=== PATIENT | female | born 1950 ===

== ENCOUNTER 2016-11-26 20:17 | Inpatient (IN) | payer MEDICARE ==
[~2016-11-26] VITALS: Ht 154.9 cm; Wt 106.0 kg
--- NOTE | ~2016-11-26 | HP ---
PATIENT'S NAME: SYLVIA ARCHIBALD [facility] AGE: 65 Y [address] ROOM: [place] [address] LOCATION: G3N ADMIT DATE: 11/26/2016 History & Physical DISCHARGE DATE: FAMILY PHYSICIAN: PHYSICIAN, UNKNOWN ATTENDING PHYSICIAN: CONY BECKWITH DATE OF SERVICE: 11/26/2016 CHIEF COMPLAINT: Medical management in the setting of right tib-fib fracture, status post ground-level fall. HISTORY OF PRESENTING ILLNESS: This 65-year-old female with previous history of chronic gait instability and diabetes mellitus type 2 was brought to [facility] after a fall which occurred earlier this evening in [place]. She states she was ambulating up a ramp into a gas station when she decided to turn around. She lost her balance and fell awkwardly. It sounds as though that her leg and cane became entangled in some railing. She experienced pain and deformity and was transferred to [place] for orthopedic evaluation. She was seen and evaluated in the emergency room by Dr. Beckwith. She underwent closed reduction and was placed into a big bulky dressing. He recommended for non- operative management. I was requested to assist in medical management and pain control. She does complain of some pain over the right chest with deep breathing. She denies any significant shortness of breath, however. She denies headaches, dizziness, and lightheadedness. She has fallen on several other occasions which she blames on her chronic gait instability. She denies any other injuries associated with the falls, however. She denies felicitas chest pain. No abdominal pain. Appetite has been good. She has been stooling and voiding normally. Denies tingling or weakness in her extremities. ALLERGIES: NO KNOWN DRUG ALLERGIES. PAST MEDICAL HISTORY: Illnesses: 1. Diabetes mellitus type 2. 2. Morbid obesity. 3. Diabetic peripheral neuropathy. 4. Diabetic foot ulcers, status post left 5th toe amputation. 5. Gait instability, chronic. CURRENT MEDICATIONS: PATIENT'S NAME: SYLVIA ARCHIBALD [facility] AGE: 65 Y [address] ROOM: [place] [address] LOCATION: G3N ADMIT DATE: 11/26/2016 History & Physical DISCHARGE DATE: FAMILY PHYSICIAN: PHYSICIAN, UNKNOWN ATTENDING PHYSICIAN: CONY BECKWITH Currently unavailable, the list is being compiled. FAMILY HISTORY: Negative for heart attack or stroke. SOCIAL HISTORY: She is and lives in a duplex in [place]. Her sister lives nearby and provides social assistance. She is a nonsmoker. There is no significant history of alcohol use. REVIEW OF SYSTEMS: As per HPI. All other organ systems are reviewed and are negative. OBJECTIVE: VITAL SIGNS: Temperature 97.1, pulse 84, respirations 18, blood pressure 119/76, O2 saturation 94% on room air. GENERAL: She is anxious, cooperative lying in the bed in no acute distress. SKIN: Supple, pink, warm, and dry. There are some areas of subcutaneous hemorrhage over the forearms. No other skin rashes. HEENT: Otherwise, normocephalic. Sclerae nonicteric. Pupils are equal, round, and reactive to light and accommodation. Extraocular movements appear intact. Nasal turbinates are normal in appearance. Oropharynx is clear. Mucous membranes are pink and moist. Dentition is in poor repair. NECK: Supple, plethoric, and obese. No masses or adenopathy. No thyromegaly. No JVD. CHEST: Chest wall is symmetrical. HEART: Regular without murmurs. LUNGS: Diminished, but clear. No wheezes or crackles are heard. She has some tenderness to palpation over the anterior chest on the right. No palpable bony deformity. ABDOMEN: Soft and obese. Nontender. Bowel sounds present. No mass or hepatosplenomegaly. : Not done. RECTAL: Not done. EXTREMITIES: Display trace to 1+ pitting edema. There is a big bulky dressing over the right lower extremity. There is postsurgical change at the left 5th digit, consistent with previous amputation. NEUROLOGIC: Mentation is a little slowed. There are no focal deficits. LABORATORY AND X-RAY DATA: X-ray of the right lower extremity shows a mildly impacted tib-fib fracture proximally postreduction. ASSESSMENT AND PLAN: 1. Diabetes mellitus type 2, historically controlled. We will manage with PATIENT'S NAME: SYLVIA ARCHIBALD [facility] AGE: 65 Y [address] ROOM: [place] [address] LOCATION: [facility] ADMIT DATE: 11/26/2016 History & Physical DISCHARGE DATE: FAMILY PHYSICIAN: PHYSICIAN, UNKNOWN ATTENDING PHYSICIAN: CONY BECKWITH Accu-Chek and sliding scale insulin while she is inpatient. 2. Gait instability, chronic, secondary to deconditioning and diabetic peripheral neuropathy. We will engage in some restorative cares. She is going to be nonweightbearing on the right lower extremity. I suspect she will need some consideration for long-term care placement. We will request Care Management to assist in looking at options for her. 3. Morbid obesity. We will need to work on some long-term strategies for weight loss including calorie reduction, increased exercise, etc. 4. Deep venous thrombosis prophylaxis. We will follow the VTE protocol. MD CHRISTIANO HALEY/zachariah /[id number] D: 019 T: 710 HISTORY & PHYSICAL
--- NOTE | ~2016-11-26 | PN ---
PATIENT'S NAME: SYLVIA ARCHIBALD [facility] AGE: 65 Y [address] ROOM: [id number] [place], [place] [address] LOCATION: G3N ADMIT DATE: 11/26/2016 Progress Notes DISCHARGE DATE: FAMILY PHYSICIAN: PHYSICIAN, UNKNOWN ATTENDING PHYSICIAN: CONY TA DATE OF SERVICE: 11/26/2016 X-rays reviewed and right lower extremity show comminuted proximal 3rd tib-fib fracture. It is closed. It in near anatomic alignment. I placed her in a long-leg ulnar gutter type splint. 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 I discussed the treatment options with her. Recommend cast due to her severe diabetes and neuropathy. We discussed treatment with open reduction and internal fixation with plate and screws versus tibia rob. She understands the risk of infection, malunion, and nonunion. 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 She elects to proceed with conservative care. She will be admitted to the hospitalist with aggressive DVT prevention plan. She will need to be placed in a long-leg cast. I will see her in the office later this week. She will need long-term care as she will be nonweightbearing or toe-touch for at least 6 weeks until evidence of healing of the fracture. She understands the risk of malunion and nonunion. She understands we may have to do serial cast including wedging. She understands the risk of compartment syndrome and sores from casting. The patient has been well-informed of treatment options and agrees with cast as the treatment plan. She follows Dr. Banegas for calcaneus. I will also discuss with him the calcaneus treatment plan as well as this proximal 3rd shaft tib-fib. CONY TA DO PH/modl /[id number] d: 11/27/16 0033 t: 12/01/16 1820, PROGRESS NOTES
--- NOTE | ~2016-11-26 | CON ---
[facility] AGE[facility] 65 Y [address] ROOM: [place] [address] LOCATION: [facility] ADMIT DATE: 11/26/2016 Consultation DISCHARGE DATE: FAMILY PHYSICIAN: PHYSICIAN, UNKNOWN ATTENDING PHYSICIAN: CONY TA REFERRING PHYSICIAN: CONY TA DO CHIEF COMPLAINT: Right lower extremity pain. HISTORY OF PRESENT ILLNESS: This is a 65-year-old female who had a mechanical fall, tripping in a hole, injuring her right tibia. She was seen in the emergency room at [place], placed in a splint, and transferred here. She has been seen by the attending ER physician. Medical history reviewed includes diabetes with chronic bilateral lower extremity neuropathy. She has had prior amputation of a left toe. PAST MEDICAL HISTORY: Medical history includes left rotator cuff tear; history of DVT x2, on Xarelto, just got off that after 6 months. She had a prior fall with report of calcaneus fracture, treated by Dr. Banegas. She has seen Dr. Riggs in the past, treated for a rotator cuff tear on the left. MEDICATIONS: She is just on a single diabetes medication. PAST SURGICAL HISTORY: Prior surgeries include toe amputation, decompression of lumbar spine, left toe amputation, and total hysterectomy. REVIEW OF SYSTEMS: Positive for poor dentition with dental caries, chronic neurogenic claudication in lower extremities with chronic diabetic neuropathy. Elevated BMI. PHYSICAL EXAMINATION: VITAL SIGNS: The patient is 160 kg, height 5 feet 1 inch. Blood pressure 135/63, pulse 78, respiratory rate of 16, and she is saturating 91% on room air. Pain level is controlled. MUSCULOSKELETAL: She has palpable pulses at her dorsalis pedis and posterior tib, right lower extremity. She is in a traction splint. X-rays currently being pushed over from the other emergency department. HEENT: The patient's head is normocephalic, atraumatic. NECK: Supple. Trachea midline. SPINE: She has no tenderness throughout her cervical, thoracic, and lumbar PATIENT'S NAME: SYLVIA ARCHIBALD [facility] AGE: 65 Y [address] ROOM: [place] [address] LOCATION: [facility] ADMIT DATE: 11/26/2016 Consultation DISCHARGE DATE: FAMILY PHYSICIAN: PHYSICIAN, UNKNOWN ATTENDING PHYSICIAN: CONY TA spine. ABDOMEN: Soft, nontender. EXTREMITIES: She moves bilateral upper extremities without any new pains. She reports chronic weakness of her left rotator cuff. She has no pain with her left lower extremity and did not assess her motor strength to her right lower extremity. DISCUSSION AND PLAN: We will evaluate x-rays, and recommend treatment based on the fracture pattern. She is going to be at elevated risk for infection given diabetic with chronic neuropathy. She is also at elevated risk due to BMI and she is at risk for forming a DVT with history of DVT x2, recently completed Xarelto. She should have a metabolic workup including DEXA scan for osteoporosis given ground level fall. She will be admitted to the hospitalist for management of medical comorbidities, and we will recommend further orthopedic treatment based on x-ray findings. CONY TA DO PH/modl /[id number] d: 11/27/16 0052 t: 12/01/16 1818, CONSULTATION REPORT
--- NOTE | ~2016-11-26 | DS ---
PATIENT'S NAME: SYLVIA ARCHIBALD [facility] AGE: 65 Y [address] ROOM: [id number] [place], [place] [address] LOCATION: [facility] ADMIT DATE: 11/26/2016 Discharge Summary DISCHARGE DATE: 11/30/2016 FAMILY PHYSICIAN: Physician, Unknown ATTENDING PHYSICIAN: Sidney Beckwith FINAL DIAGNOSES: 1. Tib-fib fracture on the right, status post mechanical fall. 2. Anemia. 3. Urinary tract infection, secondary to Klebsiella oxytoca. 4. History of deep venous thrombosis. 5. Diabetes mellitus type 2. 6. Diabetic peripheral neuropathy. 7. Morbid obesity. 8. Chronic gait instability. 9. Macrocytic anemia. Please see the consultation provided by Dr. Darian Herrera and history and physical dictated by Dr. Beckwith for details of admission. LABORATORY DATA: On admission showed her sodium to be 141, potassium 4.2, chloride 108, CO2 of 28, BUN 23, creatinine 0.7, alkaline phosphatase 121, AST 19, ALT 18, folate was 20.5, TSH 2.26. White blood cell count on admission was 4.7, hemoglobin 10.9, hematocrit 33.1, platelet count 160. Urine culture grew greater than 100,000 colonies of Klebsiella oxytoca. Stool was negative for C. diff. RADIOLOGY: Right lower extremity showed a comminuted proximal fracture of the right tibia and fibula. This was reduced. Chest x-ray showed borderline cardiomegaly. HOSPITAL COURSE: The patient was admitted to the hospital. She was seen evaluated by Dr. Beckwith, who had accepted her in transfer. He did not feel that this would need to be operated on. He did choose for reduction with a splint. A splint was placed to help reduce the swelling. We were asked to see her for medical management. She did complain of burning and foul-smelling urine. A urine culture was obtained and grew greater than 100,000 Klebsiella oxytoca. She had addition of initially been placed on Keflex, but then was converted to Cipro. She was put on MiraLAX and Colace for bowel prophylaxis. Care Management was consulted to see her for placement. She was noted to have a macrocytic anemia. Also, folate, B12, and TSH were obtained. These all returned in the normal range. Because she was a heavy two-person assist because she was unable to bear weight, she was made inpatient on November 28. Care Management was asked to see her for placement issues. She developed PATIENT'S NAME: SYLVIA ARCHIBALD [facility] AGE: 65 Y [address] ROOM: [id number] [place], [place] [address] LOCATION: [facility] ADMIT DATE: 11/26/2016 Discharge Summary DISCHARGE DATE: 11/30/2016 FAMILY PHYSICIAN: Physician, Unknown ATTENDING PHYSICIAN: Sidney Beckwith severe diarrhea and she was tested as negative. She also complained of pain on her chest wall. She was placed on Mobic. A bed became available for her at [place], and the patient was transferred on November 30. DISCHARGE INSTRUCTIONS: See Dr. Beckwith in 2 weeks. She is on an 1800- calorie diet. She is to have toe-touch weightbearing to the right lower extremity. MEDICATIONS: 1. Cipro 500 mg twice daily through December 02. 2. Colace 100 mg twice daily. 3. NovoLog, moderate sliding scale. 4. Mobic 7.5 mg twice daily. 5. Florastor 250 mg twice daily for 7 days. 6. [place] 5/325 one every 4 hours as needed for pain. 7. Dextrose 25 mL on sliding scale insulin protocol. 8. Glucagon 1 mg subcu for hypoglycemia. 9. Glucose 16 g for hypoglycemia. 10. MiraLAX 17 g daily. 11. Actos 30 mg daily. 12. Xarelto 20 mg daily. The decision was made to use systemic-dose Xarelto as she had just been treated for DVT and had just stopped. Based on the fact that it was very difficult for her to mobilize and ambulate at this time, it was felt that she would be a high risk for recurrence, so therefore she was given systemic dose. This was explained to the patient. She did voice understanding. MELONIE MONTENEGRO MD LAW/modl /[id number] d: 12/01/16 0142 t: 07/13/17 1820, DISCHARGE SUMMARY
[2016-11-26] MEDS ORDERED: PIOGLITAZONE HC30 MG PO (23:49)
--- NOTE | 2016-11-27 01:20 | NUR ---
Heather Note: Arrived to unit at 2215 via stretcher. Pt was walking out of gas station, cane got stuck in a hole, pt fell and heard leg "snap." Here for a tib fix fx to the RLE. Pt has previosuly fractured R) heel in january and has been wearing a walking boot. Leg was splinted in ER by Dr. Beckwith. No plan for surgery at this time. NKA. Hx of DM, lumbar fusion, DVT X2 to RLE, amputation to R) foot 5th digit, cataracts, c/o chronic non-produtive cough.
[2016-11-27 04:32] LABS: BASOPHIL % 0.1 %; EOSINOPHIL # 0.1 K/uL (0.0-0.5); EOSINOPHIL % 0.9 %; HEMATOCRIT 33.1 % (33.0-46.0); HEMOGLOBIN 10.9 g/dL (10.0-15.0); IMMATURE GRANULOCYTE % 0.6 %; LYMPHOCYTE # 1.2 K/uL (0.8-4.0); LYMPHOCYTE % 17.5 %; MCH 32.3 pg (27.0-34.0); MCHC 32.9 gm/dL (32.0-36.5); MCV 98.2 fl (83.0-98.0); MONOCYTE # 0.4 K/uL (0.0-1.0); MONOCYTE % 6.4 %; MPV 11.4 fl (9.4-12.4); NEUTROPHIL % 74.5 %; NRBC % 0 /100WBC (0-0.00); PLATELET COUNT 160 K/uL (150-450); RBC 3.37 M/uL (3.50-5.50); RDW-CV 13.3 % (11.9-14.6); WBC 6.7 K/uL (4.0-11.0)
[2016-11-27 05:05] LABS: ALBUMIN 2.9 gm/dL (3.5-5.0); ALK PHOS 121 IU/L (33-138); ALT 18 IU/L (12-78); ANION GAP 9.2 (10.0-19.0); AST 19 IU/L (10-40); BLOOD UREA NITROGEN 23 mg/dL (6-24); CALCIUM 8.1 mg/dL (8.5-10.5); CHLORIDE 108 mMol/L (96-110); CO2 28 mMol/L (22-32); CREATININE 0.7 mg/dL (0.5-1.1); ESTIMATED GFR (MDRD EQUATION) > 60; POTASSIUM 4.2 mMol/L (3.7-5.1); SODIUM 141 mMol/L (135-145); TOTAL BILIRUBIN 0.7 mg/dL (0.0-1.5); TOTAL PROTEIN 6.6 g/dL (6.0-8.4)
--- NOTE | 2016-11-27 05:09 | NUR ---
Significant Event: Alert and oriented X3. Vital signs stable. Splint/cast to RLE from foot to thigh. Pt is able to wiggles toes, pink, warm and good cap refill. Diabetic neuropathy. Accuchecks ordered AC and HS with sliding scale. Nauseated upon arrival, feeling better now, zofran given in ER. Pt has only taken sips of fluids. No void, states does not feel urge. Has been resting well throughout night. Denied pain this am. Scattered ecchymotic areas to arms. Will need PT to work with patient today. Will be NWB to RLE. No plan for surgery. Plan for home when able to mobilize. Lives at home with 14 year old grandson, sister lives "a couple doors down." Follow up: Need UA.
[2016-11-27 06:14] LABS: BILIRUBIN URINE NEGATIVE (NEGATIVE); BLOOD URINE 10 /UL (NEGATIVE); COLOR URINE BROWN (YELLOW); GLUCOSE URINE NEGATIVE (NEGATIVE); KETONE URINE NEGATIVE (NEGATIVE); LEUKOCYTES URINE 100 /UL (NEGATIVE); NITRITE URINE NEGATIVE (NEGATIVE); PROTEIN URINE 15 mg/dL (NEGATIVE); SPEC GRAVITY URINE 1.015 (1.003-1.035); TURBIDITY URINE 3+ (CLEAR); UROBILINOGEN URINE NORMAL (NORMAL)
[2016-11-27 06:24] LABS: BACTERIA URINE MANY (NEGATIVE); EPITHELIAL URINE 0-2 #/HPF (NEGATIVE); RBC URINE RARE #/HPF (NEGATIVE)
--- NOTE | 2016-11-27 13:33 | NUR ---
Significant Event: AOx3. VSS. Splint cast to R) leg is C/D/I. Elevate with ice. Repoition Q 2hrs. NWB to R) leg. Up with 2 assist with walker. PT said patient did not transfer very well to [facility]. Urine is brown and foul smelling. Patient states that her urine has been like that for a year. Complains of soreness in her upper right chest. Follow up:Needs placement.
--- NOTE | 2016-11-28 04:32 | NUR ---
Significant Event: Alert and orietned. Vital signs stable. Splint to RLE CDI. Neuropathy to bilateral feet. Unable to assess pulse to RLE, but toes are warm and pink, able to wiggle. C/o of nausea, refuses zofran. Denies pain unless moving. Had to encourage pt to to roxicodone, given at 0040. Also still c/o R) upper ribs/chest soreness with palpation or movement. Urine remain mireya, foul, white sediment present. Cultures pending. IV SL'd. Accucheck at was 177. Pt is determined to go home. Dr. Beckwith rounded last night and states he plans to put her in a cast next week. Dr. Beckwith aware pt c/o "popping" to her leg with movement. Ice to leg. Elevated. L) foot pump. Follow up: Need PT to help with NWB to RLE.
[2016-11-28 05:40] LABS: HEMATOCRIT 32.3 % (33.0-46.0); HEMOGLOBIN 10.5 g/dL (10.0-15.0)
--- NOTE | 2016-11-28 13:28 | NUR ---
RECEIVED REFERRAL TO [facility] FOR PATIENT TO GO TO SNF. I MEET WITH PATIENT AT THE BEDSIDE. SHE LIVES IN OWN HOME WITH HER SON AND HAS A SISTER THAT LIVES NEAR HER. PATIENT PREFERES TO GO HOME UPON DISCHARGE BUT I EXPLAINED TO HER THAT SHE MAY NEED TO HAVE SHORT STAY AT A SNF. AND SHE TELLS ME SHE AGREES. PRESENTED THE OPTION OF GETTING CLOSER TO HOME AND GOING TO [facility]. SHE IS IN AGREEMENT TO THIS. REFERRAL MADE TO RADHA AT THE [facility]. SHE WOULD LIKE FOR ME TO FAX INFO HER SHE WILL REVIEW IT WITH THE TEAM ON Mon11/30/16 AND THAN GET BACK TO ME. INFO FAXED TO RADHA. ([phone])
--- NOTE | 2016-11-28 15:23 | NUR ---
RECEIVED CALL FROM ROBERTO AT [facility] SHE REPORTS THAT THEY HAVE REVIEWED THE INFO THAT I FAXED AND HAVE CONCERNS BECAUSE PATIENT DOES NOT HAVE A SECOND PAYOR SOURCE. SHE WOULD LIKE FOR ME TO INFORM CRYSTAL THAT AFTER DAY 20 PATIENT WILL HAVE OUT OF POCKET EXPENSE OF $160.00 DAY 21-62 WHEN I INFORM PATIET OF THIS SHE TELLS ME THAT SHE WILL NOT BE STAYING FOR OVER 20 DAYS. AND SHE WILL GO HOME WITH HELP FROM HER SISTER. ROBERTO WOULD LIKE ME TO CONTACT HER ON MON WITH UPDATE.
--- NOTE | 2016-11-28 16:21 | NUR ---
Significant Event: Pt AOx3. VSS< CSM WNL, unable to check pedal pulse but toes pink, warm, wiggle. Splint to R) LE C/D/I, iced and elevated. Pain with movement. Up to recliner with mechanical lift, does well. IV intact. Urine very strong smelling. Keflex started today and Florastor. Pain controlled with PRN [place], given x 1. Needs much encouragement with activity and therapies. Uses IS as instructed with encouragement. Takes PO well. Follow up:
--- NOTE | 2016-11-29 04:42 | NUR ---
Significant Event: Full lift. NWB R). Splint cast to R) leg. CSM WNL. Voids without difficulty. Had frequent bowel movements at the beginning of the shift. Negative for C Diff. [place] last at 415. Accu check. Follow up:
--- NOTE | 2016-11-29 17:13 | NUR ---
Significant Event: Transfers with full lift and two assist. Splint and lucien wrap to R) lower leg C/D/I. Elevate at all times, refuses ice. [place] 1 tab and Mobic 7.5mg last at 1640. Unable to assess pulse otherwise CSM WNL. Follow up:
--- NOTE | 2016-11-30 05:03 | NUR ---
Shift Summary: Patient is a life to transfer or a very heavy 2 assist. She has used the bedpan to void this shift. Plan is for her to go to [facility]. Needs to go by [facility] when discharged to have cast placed on leg. Patient is on accuchecks AC&HS. was 118 at HS. Only has pain with movement. Gave [place] at beginning of the shift only.
[2016-11-30 05:39] LABS: HEMATOCRIT 32.3 % (33.0-46.0); HEMOGLOBIN 10.8 g/dL (10.0-15.0)
--- NOTE | 2016-11-30 09:08 | NUR ---
PT SCREENED D/T LOS. EST NEEDS: [id number] KCALS, 70 GM PROTEIN, 1 ML/KCAL FLUIDS. INTAKE 75-100%. NO NUTRITION-RELATED DIAGNOSIS IDENTIFIED. WILL ASSIST NEEDED.
--- NOTE | 2016-11-30 10:00 | NUR ---
NOTIFIED RADHA MARTINEZ AT [facility] IN [place] AND SHE IS GOING TO SPEAK WITH THE [facility] MATE TO SEE IF THEY WILL ACCEPT PATIENT WITHOUT A SEONDARY PAYOR SOURCE. I UPDATED HER THAT I HAVE MADE A REFERRAL TO [place] WITH [facility] TO SEE IF PATIENT QUALIFIES FOR MEDICAID.
--- NOTE | 2016-11-30 10:50 | NUR ---
RECEIVED CALL FROM ROBERTO AT [facility] IN [place]. SHE INFORMS ME THAT THEY HAVE MEET WITH THE TEAM THEY WILL ACCEPT PATIENT TO THEIR FACILITY. THEY WILL HELP HER TRY TO GET ON MEDICAID.THEY WILL BE HERE AT 1345 TO GET PATIENT THEY ARE GOING TO BE IN [place] WITH THE [facility]. I NOTIFIED DR. MONTENEGRO AND SHE WILL COMPLETE THE TRANSFERE ORDERS. DR. TA NOTIFIED BY MARIELA GR AND HE WILL BE HERE TO APPLY THE CAST. SPOKE TO DAVIE HER THAT SHE WILL BE GOING TO [facility] TODAY AND SHE IS IN AGREEMENT TO THIS. SHE WILL CONTACT HER SISTER. PATIENT INFORMS ME THAT SHE WILL BE AT THE SNF FOR LESS THAT 20 DAYS HER GOAL IS TO GO HOME WITH THE HELP OF HER SISTER.
--- NOTE | 2016-11-30 13:13 | NUR ---
FAXED TRANFERE ORDERS TO [facility].
--- NOTE | 2016-11-30 13:43 | NUR ---
Transfer Note: Repositions in bed with two assist. Transfers to chair and commode with two assist and full lift. Accuchecks ACHS. Cast placed to R) lower leg this shift by Dr Beckwith. Remains NWB to R) leg. [place] 1 tab for pain control, will give prior to transfer. K-pad to R) upper chest for rib pain. Last BM 11/29. Incontinent of urine at times.
== END 2016-11-30 14:50 | DRG 563 ==
LOC: GACC 20:17 → G3N 22:27
PROVIDERS: Family Medicine; Internal Medicine; ADMIT Orthopaedic Surgery
PROC: 0QSJXZZ Reposition Right Fibula, External Approach (ICD-10-PCS; principal; 2016-11-26)
DX: S82.451A Displaced comminuted fracture of shaft of right fibula, initial encounter for closed fracture (principal); E11.42 Type 2 diabetes mellitus with diabetic polyneuropathy; Z68.41 Body mass index [BMI] 40.0-44.9, adult; W18.39XA Other fall on same level, initial encounter; Z91.81 History of falling; Y93.9 Activity, unspecified; E66.01 Morbid (severe) obesity due to excess calories; Z79.84 Long term (current) use of oral hypoglycemic drugs; Z79.01 Long term (current) use of anticoagulants; Z86.718 Personal history of other venous thrombosis and embolism; Z89.422 Acquired absence of other left toe(s)
CPT/HCPCS: J1170; J1650; J2270; J2405; J7030